=== PATIENT | female | born 1995 | race Hispanic/Latino ===

== ENCOUNTER 2017-08-05 23:39 | Emergency (ER) | payer SELFPAY ==
[2017-08-06 00:26] VITALS: BP 119/68
[2017-08-06 01:45] LABS: Basophils % (Auto) 0.3 % (0.0-1.8); Eosinophils % (Auto) 0.5 % (0.0-4.3); Hematocrit 40.7 % (30.3-42.9); Hemoglobin 13.2 gm/dl (10.1-14.3); Mean Corpuscular HGB Conc 33 % (30-34); Mean Corpuscular Hemoglobin 29 pg (28-32); Mean Corpuscular Volume 88 fl (79-97); Platelet Count 302 K/mm3 (140-440); Red Blood Count 4.63 M/mm3 (3.65-5.03); Red Cell Distribution Width 14.1 % (13.2-15.2); White Blood Count 10.7 K/mm3 (4.5-11.0)
[2017-08-06 01:47] LABS: Albumin 4.5 g/dL (3.9-5); Albumin/Globulin Ratio 1.4 %; Alkaline Phosphatase 46 units/L (35-129); BUN/Creatinine Ratio 20; Blood Urea Nitrogen 10 mg/dL (7-17); Calcium 8.8 mg/dL (8.4-10.2); Carbon Dioxide 22 mmol/L (22-30); Chloride 99.1 mmol/L (98-107); Glucose 92 mg/dL (65-100); Lipase 28 units/L (13-60); Sodium 136 mmol/L (137-145); Total Protein 7.7 g/dL (6.3-8.2)
[2017-08-06 02:39] LABS: Alanine Aminotransferase 21 units/L (7-56); Anion Gap 19 mmol/L; Potassium 4.2 mmol/L (3.6-5.0)
[2017-08-06 03:49] LABS: Bilirubin,Urine NEG (Negative); Blood,Urine LG (Negative); Ketones,Urine NEG (Negative); Leukocyte Esterase,Urine NEG (Negative); Nitrite,Urine NEG (Negative); Protein,Urine <15 mg/dL mg/dL (Negative); Urobilinogen,Urine < 2.0 mg/dL (<2.0)
== END 2017-08-06 08:29 | disposition left against medical advice (07) ==
LOC: ED 23:39
DX: N93.9 Abnormal uterine and vaginal bleeding, unspecified (principal); Z53.21 Procedure and treatment not carried out due to patient leaving prior to being seen by health care provider
CPT/HCPCS: 36415; 80053; 81001; 83690; 84702; 85025; 86850; 86900; 86901

== ENCOUNTER 2019-05-21 19:57 | Inpatient (IN) | payer MEDICAID ==
[2019-05-21] MEDS ORDERED: BRETHINE SUB-Q PRN (20:13)
[2019-05-21] MEDS ORDERED: XYLOCAINE 2% INFILTRATI ONE (20:13)
[2019-05-21] MEDS ORDERED: MINERAL OIL PO PRN (20:13)
[2019-05-21] MEDS ORDERED: SUBLIMAZE IV PRN (20:13)
[2019-05-21] MEDS ORDERED: ZOFRAN IV PRN (20:13)
[2019-05-21] MEDS ORDERED: AMBIEN PO PRN (20:31)
[2019-05-21] MEDS ORDERED: STADOL IV PRN (20:31)
--- NOTE | 2019-05-21 20:37 | History and Physical Report ---
<EDILMA MOON - Last Filed: 05/21/19 20:32> History of Present Illness Date of examination: 05/21/19 (pt presents for IOL Demise @ 21 weeks) Date of admission: 05/21/19 19:57 History of present illness: EDC Calculations LMP: 09/26/2019 EDC Confirmation: 09/26/2019 Gestational Age: 20 2/7 weeks Past History : 3 Term Births: 1 Premature Births: 0 Living Children: 1 Para: 1 Mult. Births: 0 Prev : 0 Prev. attempt? 0 Aborta: 1 Elect. Ab: 0 Spont. Ab: 1 Ectopics: 0 # 1 Delivery date: 2016 Weeks Gestation: 6wks Delivery type: SAB # 2 Delivery date: 08/03/2018 Weeks Gestation: 38 Delivery type: Vaginal Hours of labor: 5 Anesthesia type: none Delivery location: [facility] Infant Sex: female weight: 7.06 Name: Caroline Past Medical History: Reviewed history from 01/23/2018 and no changes required: Negative Past Medical History Past Surgical History: Reviewed history from 01/23/2018 and no changes required: Negative Past Surgical History Social History: no e/t/d receptionsist - not at this time Patient is Smoking History: Patient has never smoked. Past Medical History Abnormal PAP: negative MANOJ Exposure: negative Infertility: negative Uterine Anomaly: negative Uterine Surgery (not C/S): negative Other Gynecologic Problems: negative Social Hx: no e/t/d receptionsist - not at this time Patient is Smoking History: Patient has never smoked. Infection History Hx of STD: none HIV Risk Eval: low risk Hepatitis B Risk Eval: low risk Personal hx. of genital herpes: no Partner hx. of genital herpes: no Rash, Viral, or Febrile illness since last LMP? no Varicella/Chicken Pox Status: Immunized TB Risk: no Genetic History Congenital Heart Defect: Mom: no Dad: no Caitlyn Disease: Mom: no Dad: no Thalassemia Mom: no Dad: no Neural Tube Defect Mom: no Dad: no Down's Syndrome Mom: no Dad: no Master-Sachs Mom: no Dad: no Sickle Cell Disease/Trait Mom: no Dad: no Hemophilia Mom: no Dad: no Muscular Dystrophy Mom: no Dad: no Cystic Fibrosis Mom: no Dad: no Dai Chorea Mom: no Dad: no Mental Retardation Mom: no Dad: no Fragile X Mom: no Dad: no Other Genetic/Chromosomal Disorder Mom: no Dad: no Child w/other defect Mom: no Dad: no Enviromental Exposures Xray Exposure: no Medication, drug, or alcohol use since LMP: no Chemical/Other Exposure: no Exposure to Cat Liter: no Hx of Parvovirus (Fifth Disease): no Occupational Exposure to Children: none Active Medications (reviewed today): PLUS 27-1 MG ORAL TABLET ( VIT-FE FUMARATE-FA) 1 po PNV () Current Allergies (reviewed today): No known allergies Past History - Obstetrical History Expected Date of Delivery: 09/26/19 Actual Gestation: 21 Week(s) 5 Day(s) : 3 Para: 1 Hx # Term Pregnancies: 1 Number of Pregnancies: 0 Spontaneous Abortions: 1 Induced : 0 Number of Living Children: 1 Medications and Allergies Allergies Allergy/AdvReac Type Severity Reaction Status Date / Time No Known Allergies Allergy Unverified 05/23/15 08:17 Home Medications Medication Instructions Recorded Confirmed Last Taken Type Ciprofloxacin HCl [Ciprofloxacin 500 mg PO Q12H #14 tab 05/23/15 08/03/18 Unknown Rx TAB] Ondansetron [Zofran Odt] 4 mg PO Q4H PRN #10 tab.rapdis 05/23/15 08/03/18 Unknown Rx Docusate Sodium [Colace] 100 mg PO BID PRN #60 capsule 08/04/18 Unknown Rx Ferrous Sulfate [Feosol 325 MG tab] 325 mg PO BID #60 tablet 08/04/18 Unknown Rx Active Meds: Active Medications Butorphanol Tartrate (Stadol) 2 mg IV Q2H PRN PRN Reason: Labor Pain Ephedrine Sulfate (Ephedrine Sulfate) 10 mg IV Q2M PRN PRN Reason: Hypotension Fentanyl (Sublimaze) 100 mcg IV Q2H PRN PRN Reason: Labor Pain Oxytocin/Sodium Chloride (Pitocin/Ns 20 Unit/1000ml Drip) 20 units in 1,000 mls @ 125 mls/hr IV DIRECT ETHAN Lactated Ringer's (Lactated Ringers) 1,000 mls @ 125 mls/hr IV DIRECT ETHAN Mineral Oil (Mineral Oil) 30 ml PO QHS PRN PRN Reason: Constipation Misoprostol (Cytotec) 200 mcg VG Q6H ETHAN Ondansetron HCl (Zofran) 4 mg IV Q8H PRN PRN Reason: Nausea And Vomiting Terbutaline Sulfate (Brethine) 0.25 mg SUB-Q ONCE PRN PRN Reason: Hyperstimulation/Hypertonicity Zolpidem Tartrate (Ambien) 10 mg PO QHS PRN PRN Reason: Insomnia - Physical Exam Breasts: Positive: deferred Cardiovascular: Regular rate, Normal S1, Normal S2 Lungs: Positive: Normal air movement Abdomen: Positive: normal appearance, soft, normal bowel sounds. Negative: distention, tenderness Genitourinary (Female): Positive: normal external genitalia Vulva: both: normal Vagina: Positive: normal moisture. Negative: discharge Cervix: Negative: lesion, discharge Uterus: Positive: normal size, normal contour Adnexa: both: normal Anus/Rectum: Positive: normal perianal skin, heme negative. Negative: rectal mass, hemorrhoids Extremities: Positive: normal Deep Tendon Reflex Grade: Normal +2 - Obstetrical FHR: other (demise) Results All other labs normal. OB panel not drawn All labs ordered. Assessment and Plan - Patient Problems (1) demise before 22 weeks with retention of fetus Onset Date: ~05/21/19 Current Visit: Yes Status: Acute Plan to address problem: 23yo with demise @ 21 weeks gestation. Pt denies any s/sx of onset labor Reviewed plan of care and all options for pain medication: narcotics, epidural. Will get OB labs drawn. consulted. Order for Cytotec 200mg per vagina Q6h. All questions addressed. <EITAN MANZANARES - Last Filed: 05/21/19 22:32> History of Present Illness Date of admission: 05/21/19 19:57 Medications and Allergies Active Meds: Active Medications Butorphanol Tartrate (Stadol) 2 mg IV Q2H PRN PRN Reason: Labor Pain Ephedrine Sulfate (Ephedrine Sulfate) 10 mg IV Q2M PRN PRN Reason: Hypotension Fentanyl (Sublimaze) 100 mcg IV Q2H PRN PRN Reason: Labor Pain Oxytocin/Sodium Chloride (Pitocin/Ns 20 Unit/1000ml Drip) 20 units in 1,000 mls @ 125 mls/hr IV DIRECT ETHAN Lactated Ringer's (Lactated Ringers) 1,000 mls @ 125 mls/hr IV DIRECT ETHAN Mineral Oil (Mineral Oil) 30 ml PO QHS PRN PRN Reason: Constipation Misoprostol (Cytotec) 200 mcg VG Q6H ETHAN Last Admin: 05/21/19 22:10 Dose: 200 mcg Documented by: Ondansetron HCl (Zofran) 4 mg IV Q8H PRN PRN Reason: Nausea And Vomiting Terbutaline Sulfate (Brethine) 0.25 mg SUB-Q ONCE PRN PRN Reason: Hyperstimulation/Hypertonicity Zolpidem Tartrate (Ambien) 10 mg PO QHS PRN PRN Reason: Insomnia - Vital Signs Vital signs: Vital Signs Pulse BP 81 105/55 05/21/19 21:48 05/21/19 21:48 Temp Pulse Resp BP Pulse Ox 99.0 F 81 16 105/55 100 05/21/19 21:51 05/21/19 21:51 05/21/19 21:51 05/21/19 21:51 05/21/19 21:51 Results Result Diagrams: 05/21/19 21:37 Abnormal lab results 05/21/19 Range/Units 21:37 MCHC 35 H (30-34) % Seg Neutrophils % 73.6 H (40.0-70.0) % Seg Neutrophils # 7.8 H (1.8-7.7) K/mm3 All other labs normal. Assessment and Plan - Patient Problems (1) 21 weeks gestation of Current Visit: Yes Status: Acute (2) demise before 22 weeks with retention of fetus Onset Date: ~05/21/19 Current Visit: Yes Status: Acute Plan to address problem: Spoke with patient with her and Master Moon present. Plan of care reiterated, questions were encouraged and answered, she voiced understanding
[2019-05-21] MEDS ORDERED: PITOCin/NS 20 UNIT/1000ML DRIP 20 UNITS/1,000 ML BAG IV SCH (21:00)
[2019-05-21] MEDS ORDERED: LACTATED RINGERS 1,000 ML IV SCH (21:00)
[2019-05-21 22:02] LABS: Basophils % (Auto) 0.2 % (0.0-1.8); Eosinophils % (Auto) 0.4 % (0.0-4.3); Hematocrit 37.8 % (30.3-42.9); Hemoglobin 13.3 gm/dl (10.1-14.3); Lymphocytes # (Auto) 2.2 K/mm3 (1.2-5.4); Lymphocytes % (Auto) 21.1 % (13.4-35.0); Mean Corpuscular HGB Conc 35 % (30-34); Mean Corpuscular Volume 88 fl (79-97); Monocytes # (Auto) 0.5 K/mm3 (0.0-0.8); Monocytes % (Auto) 4.7 % (0.0-7.3); Platelet Count 283 K/mm3 (140-440); Red Blood Count 4.28 M/mm3 (3.65-5.03); Red Cell Distribution Width 14.8 % (13.2-15.2)
[2019-05-21] MEDS: CYTOTEC VG SCH (22:10)
[2019-05-21 22:18] LABS: Hepatitis C Virus Antibody Non-Reactive (NonReactive)
[2019-05-22] MEDS: CYTOTEC VG SCH (04:02)
--- NOTE | 2019-05-22 09:01 | Progress Note ---
Assessment and Plan Patient resting in bed, she reports feeling comfortable, denies any complaints or concerns at this time. Patient has received 2 doses of cytotec PV, reports she was recently checked by BIBIANA Moon and "still nothing" r/t dilation. She denies any pain, reports feeling "crampy" at times, but nothing requiring pain intervention at this time. Patient reports she would not like to get an epidural, may be open to IV medications if needed, but is comfortable right now. DWP process of induction, questions encourages and answered. DWP her desires for delivery, she states she would not like to see the baby immediately, would like him wrapped and taken to warmed until she decides to see him. Encouraged pt to call RN with any changes in assessment. She verbalizes understanding. VSSAF. Continue current POC. Subjective - Subjective Date of service: 05/22/19 Principal diagnosis: IUFD 21 weeks, IOL Patient reports: contractions (occasional, "mild"), no new complaints, no loss of fluid, no vaginal bleeding Objective - Vital Signs Vital Signs: Vital Signs - 12hr 05/21/19 05/21/19 05/22/19 21:48 21:51 00:31 Temperature 99.0 F Pulse Rate 81 81 76 Respiratory 16 Rate Blood Pressure 105/55 101/50 Blood Pressure 105/55 [Right] O2 Sat by Pulse 100 Oximetry 05/22/19 05/22/19 05/22/19 01:51 01:53 04:09 Temperature 98.0 F Pulse Rate 71 71 Respiratory 16 Rate Blood Pressure 97/51 105/51 Blood Pressure [Right] O2 Sat by Pulse Oximetry - Exam Cardiovascular: Regular rate, Normal S1 Lungs: Clear to auscultation, Normal air movement Abdomen: Present: normal appearance, soft, normal bowel sounds. Absent: distention, tenderness Uterus: Present: normal Uterine Contraction Monitor Mode: External (irritability) Uterine Contraction Pattern: Irregular Uterine Tone Measurement Phase: Contraction Uterine Contraction Intensity: Mild Extremities: normal Deep Tendon Reflex Grade: Normal +2 - Labs Labs: Abnormal Labs 05/21/19 21:37 MCHC 35 H Seg Neutrophils % 73.6 H Seg Neutrophils # 7.8 H Laboratory Results - last 24 hr 05/21/19 05/21/19 05/21/19 21:34 21:34 21:34 WBC RBC Hgb Hct MCV MCH MCHC RDW Plt Count Lymph % (Auto) Bladen % (Auto) Eos % (Auto) Baso % (Auto) Lymph # Bladen # Eos # Baso # Seg Neutrophils % Seg Neutrophils # Hep Bs Antigen Non-reactive Hepatitis C Antibody Non-reactive HIV 1&2 Antibody Rapid HIV P24 Antigen Rubella IgG Antibody Immune Blood Type A POSITIVE Antibody Screen Negative 05/21/19 05/21/19 21:36 21:37 WBC 10.6 RBC 4.28 Hgb 13.3 Hct 37.8 MCV 88 MCH 31 MCHC 35 H RDW 14.8 Plt Count 283 Lymph % (Auto) 21.1 Bladen % (Auto) 4.7 Eos % (Auto) 0.4 Baso % (Auto) 0.2 Lymph # 2.2 Bladen # 0.5 Eos # 0.0 Baso # 0.0 Seg Neutrophils % 73.6 H Seg Neutrophils # 7.8 H Hep Bs Antigen Hepatitis C Antibody HIV 1&2 Antibody Rapid Non react HIV P24 Antigen Non react Rubella IgG Antibody Blood Type Antibody Screen
--- NOTE | 2019-05-22 10:36 | Procedure Note ---
OB Delivery Note - Delivery Date of Delivery: 05/22/19 Ammonia Still Operator: MARKELL CHANEY Estimated blood loss: other (150) - Vaginal Delivery presentation: vertex Intrapartum events: other(please specify) (IUFD) Delivery induction: misoprostol (x2 doses) Delivery monitor: external uterine Route of delivery: Delivery placenta: spontaneous Episiotomy: none Delivery laceration: none Anesthesia: none (patient declined) Delivery comments: Called by RN, reports SROM and parts felt in vaginal canal. Patient reports she feels urge to push. Fetus delivered complete in one push at 1015. Cord clamped and cut and infant wrapped and taken to warmer per pt request. Assessment of perineum is intact. Scant VB. Raysa care provided. Pt reports she is comfortable. Placenta delivered complete and intact at 1025 with maternal push x1. Total EBL 150. VSSAF. Hemostasis acheived. Patient is tearful, holding FOCs hand. She reports being comfortable. She declines any pain medications. Patient requesting be removed from room and she will see him when she is transferred to unit. RN aware. Dr. Carvajal aware of delivery and patient status. - Infant A at 1 minute: 0 at 5 minutes: 0 (21wk IUFD) Gender: Male
[2019-05-22] MEDS ORDERED: DULCOLAX PR PRN (10:37)
[2019-05-22] MEDS ORDERED: TYLENOL PO PRN (10:37)
[2019-05-22] MEDS ORDERED: MILK OF MAGNESIA PO PRN (10:37)
[2019-05-22] MEDS ORDERED: BENADRYL PO PRN (10:37)
[2019-05-22] MEDS ORDERED: ZOFRAN IV PRN (10:37)
[2019-05-22] MEDS ORDERED: TUCKS PAD TP PRN (10:37)
[2019-05-22] MEDS ORDERED: PITOCin/NS 20 UNIT/1000ML DRIP 20 UNITS/1,000 ML BAG IV SCH (11:00)
[2019-05-22] MEDS ORDERED: SODIUM CHLORIDE FLUSH SYRINGE 10 ML IV SCH (11:00)
[2019-05-22] MEDS: IBUPROFEN PO SCH ×2 (14:36→19:36)
[2019-05-22 23:13] LABS: Hematocrit 35.6 % (30.3-42.9); Hemoglobin 12.3 gm/dl (10.1-14.3)
[2019-05-23] MEDS: IBUPROFEN PO SCH ×3 (00:30→11:04)
--- NOTE | 2019-05-23 08:38 | Discharge Summary ---
Providers - Providers Date of Admission: 05/21/19 19:57 Date of discharge: 05/23/19 (desires d/c home today) Attending physician: EITAN MANZANARES Primary care physician: EITAN MANZANARES Hospitalization Reason for admission: Induction of labor for demise Condition: Good Pertinent studies: post delivery H&H 12.3/35.6 Procedures: , infant IUFD Hospital course: uncomplicated vaginal delivery Disposition: DC- TO HOME OR SELFCARE - Discharge Diagnoses (1) Vaginal delivery Status: Acute (2) demise before 22 weeks with retention of fetus Status: Acute Core Measure Documentation - Palliative Care Palliative Care/ Comfort Measures: Not Applicable - Core Measures Any of the following diagnoses?: none Exam - Constitutional Vitals: Temp Pulse Resp BP Pulse Ox 98.7 F 70 18 118/62 95 05/23/19 04:00 05/23/19 04:00 05/23/19 04:00 05/23/19 04:00 05/22/19 16:13 General appearance: Present: no acute distress, well-nourished - EENT Eyes: Present: PERRL ENT: hearing intact, clear oral mucosa - Neck Neck: Present: supple, normal ROM - Respiratory Respiratory effort: normal Respiratory: bilateral: CTA - Cardiovascular Heart Sounds: Present: S1 & S2. Absent: rub, click - Extremities Extremities: pulses symmetrical, No edema Peripheral Pulses: within normal limits - Abdominal General gastrointestinal: Present: soft, non-tender, non-distended, normal bowel sounds Female genitourinary: Present: normal - Integumentary Integumentary: Present: clear, warm, dry - Musculoskeletal Musculoskeletal: gait normal, strength equal bilaterally - Psychiatric Psychiatric: appropriate mood/affect, intact judgment & insight - Neurologic Neurologic: CNII-XII intact, moves all extremities - Additional findings Additional findings: lochia scant, fundus firm, VSSAF, H&H stable Plan Activity: no restrictions Diet: regular Follow up with: EITAN MANZANARES MD [Primary Care Provider] - 14 Days (Please call [phone] to schedule a follow-up appointment in 2 weeks. Call for any questions or concerns.) Prescriptions: Ibuprofen [Motrin 800 MG tab] 800 mg PO Q8HR PRN #30 tablet PRN Reason: Pain
[2019-05-23 09:37] VITALS: BP 93/33
== END 2019-05-23 12:20 | disposition home or self-care (01) | DRG 775 ==
LOC: APU 19:57 → LD 20:03 → OB 05-22 13:01
PROVIDERS: ADMIT Obstetrics & Gynecology; ATTEND Obstetrics & Gynecology
PROC: 10E0XZZ Delivery of Products of Conception, External Approach (ICD-10-PCS; principal; 2019-05-22)
PROC: 3E0P7VZ Introduction of Hormone into Female Reproductive, Via Natural or Artificial Opening (ICD-10-PCS; 2019-05-22)
DX: O36.4XX0 Maternal care for intrauterine death, not applicable or unspecified (principal); Z37.1 Single stillbirth; Z3A.21 21 weeks gestation of pregnancy; Z79.899 Other long term (current) drug therapy
CPT/HCPCS: 36415; 85014; 85018; 85025; 86592; 86706; 86762; 86803; 86850; 86900; 86901; 87806; 88307; G0378; J2590; J7120